=== PATIENT | female | born 1985 | race Caucasian/White ===

== ENCOUNTER 2024-04-06 10:05 | Emergency (ER) | payer BC, SELFPAY ==
[2024-04-06 10:15] VITALS: BP 132/89
--- NOTE | 2024-04-06 10:22 | ED.GENMED ---
ED Provider Triage
<Che Perez [employer] - Last Filed: 04/06/24 11:03>
-
Attestation: A medical screening examination has been initiated by a qualified medical provider. Based on the assessment performed at this time, it has been determined that an emergent medical condition may exist and the patient has been informed
that further medical evaluation and possible additional diagnostic testing may be needed.
HPI: 38-year-old female who developed urinary frequency and urgency and burning, few days ago, took Azo and yesterday developed lower abdominal pain and she is concerned it might be her ulcerative colitis. She denies fever or chills. Denies nausea
vomiting diarrhea or constipation.
GENERAL: Alert , in no apparent distress
EYE: No visual abnormalities.
ENT: No visible abnormalities.
LUNGS: No acute respiratory distress
NEUROLOGICAL: Alert and oriented
SKIN: Skin intact. No visible changes.
MUSCULOSKELETAL: Moving extremities normally
PSYCH: Normal and appropriate interaction.
This is a medical evaluation conducted in person to initiate diagnostic evaluation and provide initial therapeutics. Please see further documentation by the treating clinician.
History of Present Illness
<Che Perez [employer] - Last Filed: 04/06/24 11:03>
General
Chief Complaint: Urinary Symptoms
Time Seen by Provider: 04/06/24 11:49
<Gia Mcdonald PA-C - Last Filed: 04/06/24 15:27>
General
Source: patient
Exam Limitations: none
History of Present Illness
History of Present Illness:
38-year-old female presents complaining of 3 days worth of lower abdominal pain and urinary symptoms. She has a history of ulcerative colitis. She is on 3 mg of budesonide 3 times a day. She also takes Entyvio injections. She is followed by [facility] [place]. She notes discomfort with urination. Last menstrual cycle was 1 week ago. She has had UTIs before. She notes normal bowel movements.
Phy Exam
<Gia Mcdonald PA-C - Last Filed: 04/06/24 15:27>
Physical Exam
Physical Exam:
General: Well-appearing female no acute respiratory distress
HEENT: Normocephalic atraumatic
Heart: Regular rate and rhythm no murmurs
Lungs: Clear no wheeze
Abdomen is soft tender to the lower abdomen bilaterally mild guarding no rebound tenderness normal bowel sounds nondistended
Extremities: No cyanosis or edema
Course
<Che Perez [employer] - Last Filed: 04/06/24 11:03>
Orders/Labs/Results
Orders:
Orders
04/06/24 10:20
Test Result ONCE
04/06/24 10:28
Complete Blood Count/With Diff Urgent
Comprehensive Metabolic Panel Urgent
HCG, Serum Qualitative Screen Urgent
Lipase Urgent
Urinalysis Reflex To Culture Urgent
Date Specimen was Collected: 04/06/24
Time Specimen was Collected: 10:06
Urine Microscopic Reflex Cult Urgent
Urine Culture Urgent
SHUBHAM Source: U
Specimen Description:
Date Specimen was Collected: 04/06/24
Time Specimen was Collected: 10:06
04/06/24 12:00
CT Abd/pelvis W Iv Cont Urgent
Comment:
Reason For Exam: lower adominal pain
Ketorolac [Toradol] 15 mg IV NOW STA
Abnormal Lab Results
04/06/24
10:28
WBC 11.4 H 10^3/uL
(4.8-10.8)
MCHC 32.0 L g/dL
(33.0-37.0)
RDW 14.6 H %
(11.5-14.5)
Absolute Neuts (auto) 7.1 H 10^3/uL
(1.4-6.5)
Absolute Monos (auto) 1.0 H 10^3/uL
(0.1-0.6)
Ur Occult Blood Reflex 2+ A
(Negative)
Urine Nitrite (Reflex) Positive A
(Negative)
Urine Bilirubin 1+ A
(Negative)
Urine Urobilinogen 2+ A
(Neg - 1+)
Leukocyte Esterase Rfl 2+ A
(Negative)
Urine RBC 7-10 A /HPF
(0-2)
Urine WBC (Reflex) 70-80 A /HPF
(0-5)
Urine Bacteria (Reflex) Few A
(Negative)
Urine Albumin (Reflex) 1+ A
(Neg - Trace)
04/06/24 10:28
04/06/24 10:28
Vital Signs
Initial and Last Documented VS:
Initial Vital Signs
Temp Pulse Resp BP Pulse Ox
98.3 F 114 16 132/89 99
04/06/24 10:15 04/06/24 10:15 04/06/24 10:15 04/06/24 10:15 04/06/24 10:15
Last Documented Vital Signs
Temp Pulse Resp BP Pulse Ox
98.0 F 105 18 131/73 100
04/06/24 12:03 04/06/24 12:03 04/06/24 12:03 04/06/24 12:03 04/06/24 12:03
<Gia Mcdonald PA-C - Last Filed: 04/06/24 15:27>
Orders/Labs/Results
Orders:
Orders
04/06/24 10:20
Test Result ONCE
04/06/24 10:28
Complete Blood Count/With Diff Urgent
Comprehensive Metabolic Panel Urgent
HCG, Serum Qualitative Screen Urgent
Lipase Urgent
Urinalysis Reflex To Culture Urgent
Date Specimen was Collected: 04/06/24
Time Specimen was Collected: 10:06
Urine Microscopic Reflex Cult Urgent
Urine Culture Urgent
SHUBHAM Source: U
Specimen Description:
Date Specimen was Collected: 04/06/24
Time Specimen was Collected: 10:06
04/06/24 12:00
CT Abd/pelvis W Iv Cont Urgent
Comment:
Reason For Exam: lower adominal pain
Ketorolac [Toradol] 15 mg IV NOW STA
Abnormal Lab Results
04/06/24
10:28
WBC 11.4 H 10^3/uL
(4.8-10.8)
MCHC 32.0 L g/dL
(33.0-37.0)
RDW 14.6 H %
(11.5-14.5)
Absolute Neuts (auto) 7.1 H 10^3/uL
(1.4-6.5)
Absolute Monos (auto) 1.0 H 10^3/uL
(0.1-0.6)
Ur Occult Blood Reflex 2+ A
(Negative)
Urine Nitrite (Reflex) Positive A
(Negative)
Urine Bilirubin 1+ A
(Negative)
Urine Urobilinogen 2+ A
(Neg - 1+)
Leukocyte Esterase Rfl 2+ A
(Negative)
Urine RBC 7-10 A /HPF
(0-2)
Urine WBC (Reflex) 70-80 A /HPF
(0-5)
Urine Bacteria (Reflex) Few A
(Negative)
Urine Albumin (Reflex) 1+ A
(Neg - Trace)
04/06/24 10:28
04/06/24 10:28
Vital Signs
Initial and Last Documented VS:
Initial Vital Signs
Temp Pulse Resp BP Pulse Ox
98.3 F 114 16 132/89 99
04/06/24 10:15 04/06/24 10:15 04/06/24 10:15 04/06/24 10:15 04/06/24 10:15
Last Documented Vital Signs
Temp Pulse Resp BP Pulse Ox
98.0 F 105 18 131/73 100
04/06/24 12:03 04/06/24 12:03 04/06/24 12:03 04/06/24 12:03 04/06/24 12:03
<Gia Mcdonald PA-C - Last Filed: 04/06/24 15:27>
MDM/Problems Addressed
Differential Diagnosis Includes:
Reviewed triage note. Lower abdominal pain with urinary symptoms. Consider UTI versus ulcerative colitis flare versus appendicitis versus diverticulitis
Given the tenderness on exam will CT of the abdomen with IV contrast.
<Gia Mcdonald PA-C - Last Filed: 04/06/24 15:27>
*Critical Care Note
Total Time (30-74mins, 75-104mins- exclusive of procedures): Not Applicable
<Gia Mcdonald PA-C - Last Filed: 04/06/24 15:27>
Update Note
Update Note:
CT demonstrates cystitis with potential ureteritis. No sign of colitis. Cipro prescribed for her urinary tract infection. Labs reviewed otherwise. Stable for discharge
ED Attending Note
<Che Perez [employer] - Last Filed: 04/06/24 11:03>
-
Portions of this chart may have been created with voice recognition software.� Occasional wrong word or��sound alike� substitutions may have occurred due to the inherent limitations of voice recognition software.
Discharge Plan
Departure
Patient Disposition: Home (Routine Discharge)
Date of Disposition: 04/06/24
Time of Disposition: 15:26
Patient with high blood pressure during this ER visit?: No
Discharge Problem:
UTI (urinary tract infection)
Instructions: Urinary Tract Infection, Adult (DC)
Prescriptions:
New
ciprofloxacin HCl [Cipro] 500 mg tablet
500 mg PO BID Qty: 14 0RF
Referrals:
GIA SANTO [Other]
Activity Restrictions/Additional Instructions:
Drink plenty of fluids. Use antibiotic as directed. Return if worse otherwise follow-up with your doctor
Interventions
Interventions:
*Risk Screen - Suicide Last Done: 04/06/24 10:15
*General Assessment Last Done: 04/06/24 11:34
*Neglect/Abuse Screening Last Done: 04/06/24 11:34
ED- Fall Risk Assessment Last Done: 04/06/24 11:36
*ED COVID-19 Vaccine History Last Done: 04/06/24 11:34
ED-Female Genitourinary Assessment Last Done: 04/06/24 11:35
Discharge Date and Time
Print Language: BRITISH
[2024-04-06 10:40] LABS: % Basophils 0.7 % (0-2); % Eosinophils 2.4 % (0-6); % Immature Granulocytes 0.3 % (0-0.5); % Lymphocytes 25.3 % (20.5-51.1); % Neutrophils 62.3 % (42.2-75.2); Absolute Basophils 0.1 10^3/uL (0-0.2); Absolute Eosinophils 0.3 10^3/uL (0-0.7); Absolute Lymphocytes 2.9 10^3/uL (1.2-3.4); Absolute Neutrophils 7.1 10^3/uL (1.4-6.5); Hematocrit 43.5 % (37.0-47.0); Hemoglobin 13.9 g/dL (12.0-16.0); Mean Corpuscular Hgb 28.9 pg (27.0-31.0); Mean Corpuscular Volume 90.4 fL (81.0-99.0); Mean Platelet Volume 8.9 fL (7.4-10.4); Nucleated Red Blood Cells % 0 %; Platelet Count 241 10^3/uL (130-400); Red Blood Cell Count 4.81 10^6/uL (4.20-5.40); Red Cell Dist. Width 14.6 % (11.5-14.5); White Blood Cell Count 11.4 10^3/uL (4.8-10.8)
[2024-04-06 11:04] LABS: ALT (SGPT) 31 U/L (0-35); AST (SGOT) 23 U/L (14-36); Albumin 3.9 g/dl (3.5-5.0); Alkaline Phosphatase 58 U/L (38-126); Blood Urea Nitrogen 7 mg/dl (7-17); Calcium 8.9 mg/dl (8.4-10.2); Carbon Dioxide 27 mmol/L (22-30); Chloride 103 mmol/L (98-107); Glucose 91 mg/dl (70-99); Lipase 37 U/L (23-300); Potassium 3.6 mmol/L (3.5-5.1); Sodium 139 mmol/L (135-145); Total Protein 7.1 g/dl (6.3-8.2); eGFR > 60.00
[2024-04-06 11:11] LABS: HCG, Serum Qualitative Screen Negative
[2024-04-06 11:29] LABS: Urine Albumin 1+ (Neg - Trace); Urine Bilirubin 1+ (Negative); Urine Character Slightly Cloudy (Clear); Urine Color Yellow; Urine Glucose Negative (Negative); Urine Ketone Negative (Negative); Urine Leukocyte 2+ (Negative); Urine Nitrite Positive (Negative); Urine Occult Blood 2+ (Negative); Urine Urobilinogen 2+ (Neg - 1+)
[2024-04-06 12:03] VITALS: BP 131/73
[2024-04-06] MEDS: TORADOL 15 MG IV (12:17)
[2024-04-06 13:27] LABS: Urine Bacteria Few (Negative); Urine White Cell 70-80 /HPF (0-5)
[2024-04-06 15:50] VITALS: BP 130/76
== END 2024-04-06 15:52 | disposition home or self-care (01) ==
LOC: EMR 10:05
PROVIDERS: EMERGENCY PHYSICIAN Emergency Medicine
DX: N39.0 Urinary tract infection, site not specified (principal); R10.30 Lower abdominal pain, unspecified; K51.90 Ulcerative colitis, unspecified, without complications; Z87.440 Personal history of urinary (tract) infections; Z88.0 Allergy status to penicillin
CPT/HCPCS: 99284; 96374; 74177; 80053; 81003; 81015; 83690; 84703; 85025; 87077; 87086; Q9967